=== PATIENT | male | born 1950 | race American Indian/Alaskan Native ===

== ENCOUNTER 2016-11-10 18:29 | Observation (INO) | payer MEDICARE ==
[2016-11-10 18:48] VITALS: TEMP 98.8
--- NOTE | 2016-11-10 19:05 | ED PDOC ---
HPI: Psych/Substance Abuse Time Seen by Provider: 11/10/16 19:00 Chief Complaint (Nursing): Psychiatric Evaluation Chief Complaint (Provider): Pstchiatric Evaluation History Per: Patient History/Exam Limitations: no limitations Onset/Duration Of Symptoms: Days (today) Suicide/Self Injury Attempted (Context): None Modifying Factor(s): None Associated Symptoms: denies: Suicidal Thoughts (no homicidal ideation) Involuntary Hold By: None Additional Complaint(s): Dieudonne Malone is a 66 year old male, with a past medical history inclusive of diabetes (s/p b/l BKA's w/prosthetic replacements), who presents to the ED on 11/10/16 for a psychiatric evaluation as per the direction of the alf in which has been a resident since falling in his apartment 3 weeks ago. Patient states this fall was a mechanical one and that he had been sent to the ED after arguing with one of the nurses as they would not let him return home despite his desire to do so. Denies suicidal/homicidal ideation. PMD: Dr. Jennifer Carl (per patient) Past Medical History Reviewed: Historical Data, Nursing Documentation, Vital Signs Vital Signs: Last Vital Signs Temp 98.8 F 11/10/16 18:46 Pulse 88 11/10/16 18:46 Resp 22 11/10/16 18:46 BP 145/90 11/10/16 18:46 Pulse Ox 99 11/10/16 18:46 - Medical History PMH: Diabetes - Surgical History Other surgeries: b/l BKA - Family History Family History: States: Unknown Family Hx - Allergies Allergies/Adverse Reactions: Allergies Allergy/AdvReac Type Severity Reaction Status Date / Time No Known Allergies Allergy Verified 11/10/16 18:46 Review of Systems Psych: Positive for: Other (sent by alf for psychiatric evaluation). Negative for: Suicidal ideation (no homicidal ideation) Physical Exam - Reviewed Nursing Documentation Reviewed: Yes Vital Signs Reviewed: Yes - Physical Exam Appears: Positive for: Non-toxic, No Acute Distress Head Exam: Positive for: ATRAUMATIC, NORMOCEPHALIC Skin: Positive for: Normal Color, Warm, Dry Cardiovascular/Chest: Positive for: Regular Rate, Rhythm. Negative for: Murmur Respiratory: Positive for: Normal Breath Sounds. Negative for: Respiratory Distress Extremity: Positive for: Other (b/l BKA) Neurologic/Psych: Positive for: Alert, Oriented - Laboratory Results Result Diagrams: 11/10/16 23:53 11/10/16 23:53 - ECG Interpretation Of ECG: NSR @ 75, nonspecific T wave abnormality. O2 Sat by Pulse Oximetry: 99 (RA) Pulse Ox Interpretation: Normal - Radiology X-Ray: Interpreted by Me X-Ray Interpretation: No Acute Disease Medical Decision Making Medical Decision Makin:00 Initial Impression: patient is medically clear for psychiatric evaluation Initial Plan: * Crisis Evaluation * Reevaluation Accucheck is 107. 21:00 Patient will be placed into ED Observation pending Crisis Evaluation. See Obs note for further updates. Labs reviewed and compared to [place] records: labs drawn on 10/19/16 reveal Hb 11.5, BUN/creat 61/3.6, CO2 20. Scribe Attestation: Documented by Elizabeth Coughlin, acting as a scribe for Nova Kingsley MD. Provider Scribe Attestation: All medical record entries made by the Scribe were at my direction and personally dictated by me. I have reviewed the chart and agree that the record accurately reflects my personal performance of the history, physical exam, medical decision making, and the department course for this patient. I have also personally directed, reviewed, and agree with the discharge instructions and disposition. ED OBSERVATION Date of observation admission: 11/10/16 Time of observation admission: 21:00 - Observation admission statement Patient is being placed in observation because:: Pending Crisis Evaluation. - Goals of Observation Goals of observation are:: Crisis Evaluation, reevaluation and final disposition. - Progress Note Progress Note: 11/10/16 22:46 Patient has been evaluated by Crisis and meets criterion for psychiatric admission with a diagnosis of PTSD as per Dr. Moreno (psychiatrist wildlife conservation professor), but is refusing to voluntarily sign himself in for further treatment. Will need [facility] evaluation. Patient is behaving aggressively towards ED staff and is threatening to leave facility. He will be placed in 4 point restraints for both his safety and the safety of ED staff. Also ordered administration of Ativan 2mg IM and Haldol 5mg IM for relief of acute agitation. Disposition - Clinical Impression Clinical Impression: PTSD (post-traumatic stress disorder) - Disposition Disposition Time: 21:00 Condition: STABLE Patient Signed Over To: Claude Burns Handoff Comments: Pending medical clearance.
[2016-11-10 23:56] LABS: BASO # 0.1 K/uL (0.0-0.2); BASO % 0.7 % (0.0-2.0); EOS # 0.4 K/uL (0.0-0.7); EOS % 4.2 % (0.0-4.0); HEMATOCRIT 32.8 % (35.0-51.0); LYMPH # 1.9 K/uL (1.0-4.3); LYMPH % 19.5 % (20.0-40.0); MEAN CELL VOLUME 86.7 fl (80.0-94.0); MEAN CORPUSCULAR HEMOGLOBIN 27.6 pg (27.0-31.0); MEAN CORPUSCULAR HGB CONC 31.8 g/dL (33.0-37.0); MEAN PLATELET VOLUME 9.3 fl (7.2-11.7); MONO # 0.9 K/uL (0.0-0.8); MONO % 8.8 % (0.0-10.0); NEUT # 6.5 K/uL (1.8-7.0); NEUT % 66.8 % (50.0-75.0); RED CELL DISTRIBUTION WIDTH 13.7 % (11.5-14.5); WHITE BLOOD COUNT 9.7 K/uL (4.8-10.8)
[2016-11-11 00:05] LABS: BILIRUBIN,TOTAL 0.5 mg/dl (0.2-1.3)
[2016-11-11 00:06] LABS: ALB/GLOB RATIO 1.1 (1.0-2.1); CALCIUM 8.6 mg/dL (8.4-10.2); TOTAL PROTEIN 6.6 G/DL (6.3-8.2)
[2016-11-11 00:33] LABS: RBC URINE 1 /hpf (0-3); URINE BACTERIA RARE (<OCC); URINE BILIRUBIN NEGATIVE (NEGATIVE); URINE BLOOD NEGATIVE (NEGATIVE); URINE COLOR YELLOW (YELLOW); URINE GLUCOSE (UA) 50 mg/dL (Normal); URINE KETONE NEGATIVE (NEGATIVE); URINE LEUKOCYTE ESTERASE NEG Leu/uL (Negative); URINE PROTEIN >=500 mg/dL (NEGATIVE); URINE UROBILINOGEN 0.2-1.0 mg/dL (0.2-1.0); WBC URINE 1 /hpf (0-5)
--- NOTE | 2016-11-11 00:35 | RAD ---
EXAM: XR Chest, 1 View CLINICAL HISTORY: 66 years old, male; Signs and symptoms; Other: Med. Clearance, crisis eval; Additional info: Medical clearance TECHNIQUE: Frontal view of the chest. EXAM DATE/TIME: 11/10/2016 10:47 PM COMPARISON: There are no prior studies for comparison. FINDINGS: Heart: The heart is normal in size. Mediastinum: Mediastinal and hilar contours are unremarkable Vascularity: Pulmonary vascularity is normal. Lungs: Lung volumes are low. There is no lobar or segmental consolidation. Pleura: There are no effusions. Osseous structures: There are degenerative changes in the osseus structures. Impression: Low lung volumes, no focal infiltrate
[2016-11-11 04:42] VITALS: BP 163/97; PULSE 81; RESP 18; O2SAT 99
--- NOTE | 2016-11-11 05:52 | ED PDOC ---
- Laboratory Results Result Diagrams: 11/10/16 23:53 11/10/16 23:53 - ECG O2 Sat by Pulse Oximetry: 99 Medical Decision Making Medical Decision Making: Pt. signed out to me by Dr. Kingsley. Evaluated by Crisis, does not meet admission criteria at this time, will d/c back to [place] home w/ dx: of PTSD by Dr. Moreno. Disposition - Clinical Impression Clinical Impression: Posttraumatic stress disorder - POA Present On Arrival: None - Disposition Disposition: Routine/Home Disposition Time: 05:52 Condition: STABLE
--- NOTE | 2016-11-11 11:30 | CARD ---
APPROVED REPORT EKG Measurement Heart [id number] <Conclusion> Normal sinus rhythm Nonspecific T wave abnormality Abnormal ECG
== END 2016-11-11 08:36 | disposition home or self-care (01) ==
LOC: H.ER 18:29 → H.EROBSV 21:00
PROVIDERS: ADMIT Emergency Medicine; ATTEND Emergency Medicine
DX: F43.10 Post-traumatic stress disorder, unspecified (principal); E11.9 Type 2 diabetes mellitus without complications; Z78.1 Physical restraint status; Z89.512 Acquired absence of left leg below knee; Z89.511 Acquired absence of right leg below knee; Z91.81 History of falling
CPT/HCPCS: 36415; 71010; 80053; 81003; 82948; 85025; 93005; 96372; 99284; G0378; G0480; J1630; J2060